=== PATIENT | male | born 1965 | race Caucasian/White ===

== ENCOUNTER → 2021-12-08 17:36 | Outpatient (CLI) | payer BC, SELFPAY ==
--- NOTE | 2021-12-08 17:41 | DI.US.S_ITS ---
PROCEDURE: US SOFT TISSUE HEAD AND NECK INDICATIONS: soft tissue mass TECHNIQUE: Real-time scanning was performed of the neck region of interest, with image documentation. COMPARISON: None. FINDINGS: Within the central left submandibular region anteriorly, there are 2 nonenlarged lymph node seen at the area of clinical concern measuring 10 x 8 x 11 mm and 7 x 4 x 6 mm. Well preserved fatty scott can be seen. IMPRESSION: Borderline prominent lymph node seen at the area of clinical concern. Dictated by: Haresh Freitas M.D. on 12/08/2021 at 18:03 Approved by: Haresh Freitas M.D. on 12/08/2021 at 18:03
== END ==
PROVIDERS: PCP Nurse Practitioner Family; Referring Provider Nurse Practitioner Family; Visit Provider Nurse Practitioner Family
DX: R22.0 Localized swelling, mass and lump, head (principal)
CPT/HCPCS: 76536